=== PATIENT | female | born 2000 | race Caucasian/White ===

== ENCOUNTER 2018-08-10 14:42 | Day surgery (SDC) | payer SELFPAY ==
[~2018-08-10] VITALS: Ht 175.3 cm; Wt 145.1 kg
[~2018-08-10 14:42] MED LIST: ALBU17AE3 IH; SERT50TA PO
--- OUTSIDE RECORDS SUMMARY | 2018-08-10 14:46 | XMS REPORT ---
Author Author ANAND MEZA [facility] Address [address] [place] [address] Care Team Providers Care Clam Bed Laborer Name Role Phone MEZAANAND Unavailable PROBLEMS Type Condition ICD9-CM Code [id number] Code Onset Dates Condition Status SNOMED Code Problem Acute pharyngitis 462 Active 180049054 Problem Acute upper respiratory infections of unspecified site 465.9 Active 41999434 Problem Acute bronchitis 466.0 Active 56523313 Problem Asthma, unspecified, with (acute) exacerbation 493.92 Active 654844205 ALLERGIES No Information ENCOUNTERS Encounter Location Date Diagnosis [place] [address] [address] Feb, [facility] [address] [id number] Jul, Acute non-recurrent maxillary sinusitis J01.[address] [id number] Jun, Influenza A J10.[address] [id number] September, Encounter for PPD test Z11.[address] [id number] Aug, Encounter for PPD test Z11.1 [place] [id number] [place] [id number] Mar, Pharyngitis J02.9 [facility] [address] [address] Aug, [place] [id number] [address] Aug, [address] [id number] Jul, [facility] [address] [facility] [id number] [place] [address] Jul, [facility] [address] [facility] [place] [id number] [place] [id number] Jun, [facility] [address] [facility] [id number] [address] Jun, [facility] [address] [facility] [id number] [address] Jul, [facility] [address] [facility] [place] [id number] [place] [id number] Jul, IMMUNIZATIONS No Known Immunizations SOCIAL HISTORY Never Assessed REASON FOR VISIT Eye exam PLAN OF CARE VITAL SIGNS MEDICATIONS Unknown Medications RESULTS No Results PROCEDURES No Known procedures INSTRUCTIONS MEDICATIONS ADMINISTERED No Known Medications MEDICAL (GENERAL) HISTORY Type Description Date Medical History depression/anxiety
--- OUTSIDE RECORDS SUMMARY | 2018-08-10 14:46 | XMS REPORT ---
Author Author RACHEL GUALLPA [facility] eClinicalWorks Address Unknown Phone Unavailable Care Team Providers Care Systems Coordinator Name Role Phone RACHEL GUALLPA Unavailable Allergies No Known Allergies Problems Problem Type Condition Code Onset Dates Condition Status Problem Acute pharyngitis 462 Active Problem Acute upper respiratory infections of unspecified site 465.9 Active Problem Acute bronchitis 466.0 Active Problem Asthma, unspecified, with (acute) exacerbation 493.92 Active Assessment Encounter for PPD test Z11.1 Active Medications No Known Medications Procedures Procedure Coding System Code Date TB INTRADERMAL TEST CPT-4 33633 September 30, 2015 Results No Known Results Summary Purpose eClinicalWorks Submission
--- OUTSIDE RECORDS SUMMARY | 2018-08-10 14:46 | XMS REPORT ---
Author Ann Marie Lopez [facility] Address [address] [place], [place] [address] Care Team Providers Care Jewel Blocker And Sawyer Name Role Phone Ann Marie Knutson PCP Unavailable Allergies and Adverse Reactions Name Reaction Notes No known drug allergy Plan of Treatment Planned Activity Comments Planned Date Planned Time Plan/Goal HIV AG/AB COMBO 03/17/2017 12:00 AM HEPATITIS B SURF AG 03/17/2017 12:00 AM HEPATITIS C AB 03/17/2017 12:00 AM Medications Not available. Problem List Not available. Vital Signs Date Time BP-Sys(mm[Hg] BP-Janelle(mm[Hg]) HR(bpm) RR(rpm) Temp WT HT HC BMI BSA BMI Percentile O2 Sat(%) 03/17/2017 10:18:00 AM 132 mmHg 71 mmHg 102 bpm 18 rpm 97.7 F 362 lbs 69 in 53.46 kg/m2 2.83 m2 99.4 % 97 % Social History Name Description Comments Alcohol Current some day Tobacco Current every day smoker History of Procedures Not available. Results Summary Not available. History Of Immunizations Not available. History of Past Illness Name Date of Onset Comments Anxiety Depression Bipolar Disorder Hypertension Abrasion Mar 17 2017 10:22AM Payers Insurance Name Company Name Plan Name Plan Number Policy Number Policy Group Number Start Date Res Care ResCare [id number] WC Inj face N/A History of Encounters Visit Date Visit Type Provider 03/17/2017 Office visit Ann Marie Knutson GARMENT WORKER
--- OUTSIDE RECORDS SUMMARY | 2018-08-10 14:46 | XMS REPORT ---
Author Author RACHEL GUALLPA [facility] eClinicalWorks Address Unknown Phone Unavailable Care Team Providers Care Business Relations Manager Name Role Phone RACHEL GUALLPA Unavailable Allergies [...] System Code Date TB INTRADERMAL TEST CPT-4 76523 September 16, 2015 Results No Known Results Summary Purpose eClinicalWorks Submission
--- OUTSIDE RECORDS SUMMARY | 2018-08-10 14:46 | XMS REPORT ---
Author Author Ann Marie Knutson [facility] Address [address] [place], [place] [address] Care Team Providers Care Retail Merchandiser Name Role Phone Ann Marie Knutson PCP Unavailable Allergies and Adverse Reactions Name Reaction Notes No known drug allergy Plan of Treatment Not available. Medications Not available. Problem List Not available. [...] Current every day smoker History of Procedures Date Ordered Description Order Status 03/17/2017 12:00 AM HIV-1 AG W/HIV-1 & HIV-2 AB Returned 03/17/2017 12:00 AM HEPATITIS B SURFACE AG EIA Returned 03/17/2017 12:00 AM HEPATITIS C AB TEST Returned 03/18/2017 12:00 AM IMMUNIZATION ADMIN Reviewed 03/18/2017 12:00 AM TDAP VACCINE 7 YRS/> IM Reviewed Results Summary Not available. History Of Immunizations Name Date Admin Mfg Name Mfg Code Trade Name Lot# Route Inj Vis Given Vis Pub CVX Tdap 03/17/2017 [facility]vec [facility] BOOSTRIX BP27L Intramuscular Left Arm 03/17/2017 07/23/2014 115 History of Past Illness Name Date of Onset Comments Anxiety Depression Bipolar Disorder Hypertension Abrasion Mar 17 2017 10:22AM Need for Tdap vaccination Mar 18 2017 11:55AM Payers Insurance Name Company Name Plan Name Plan Number Policy Number Policy Group Number Start Date Res Care ResCare [id number] WC Inj face N/A History of Encounters Visit Date Visit Type Provider 03/17/2017 Office visit Ann Marie Knutson COMMERCIAL INTERIOR DESIGNER
--- OUTSIDE RECORDS SUMMARY | 2018-08-10 14:46 | XMS REPORT ---
Author Author [facility] Medical Staff Organization [facility] Address [address] [place], [place] [address] Phone [phone] Care Team Providers Care Academic Affairs Manager Name Role Phone MACIE DILL PP [phone] Summary purpose TRANSITION OF CARE AUTO GENERATION Chief Complaint and Reason for Visit No authorized Reason for Visit (Admitting Diagnosis) is available for this visit. Problem list No authorized problems tracked for continuity of care are available for this visit. Encounters No authorized problems tracked for encounter diagnoses are available for this visit. Medications No home medications recorded for this patient visit Allergies, adverse reactions, alerts No allergy information is available for this patient. Immunizations No immunizations recorded for this patient visit Relevant diagnostic tests and/or laboratory data No authorized results are available for this patient visit History of procedures No procedures recorded for this patient visit. Functional status No functional or cognitive status observations are available for this visit. Vital signs Type Value Date Respiration Rate 20breaths per minute :30 Pulse 118beats per minute :30 Oxygen Saturation 98% :30 BP Systolic 140mmHg 91-24-258378:30 BP Diastolic 84mmHg :30 Temperature 99.1F :30 Height 68inches :41 Weight 339LB :41 Social history Type Value Smoking Status FORMER SMOKER Treatment Plan No treatment plan text is available for this visit. Hospital discharge instructions Dismissal Condition good Disposition on DC home DC Inst/Educ Give yes
--- OUTSIDE RECORDS SUMMARY | 2018-08-10 14:46 | XMS REPORT ---
Author Author RACHEL GUALLPA eClinicalWorks Address Unknown Phone Unavailable Care Team Providers Care Jailer/Training Officer Name Role Phone RACHEL GUALLPA CP Unavailable Allergies, Adverse Reactions, Alerts Substance Reaction Event Type N.K.D.A. Info Not Available Non Drug Allergy Problems Problem Type Condition Code Onset Dates Condition Status Problem Acute pharyngitis 462 Active Problem Acute upper respiratory infections of unspecified site 465.9 Active Problem Acute bronchitis 466.0 Active Problem Asthma, unspecified, with (acute) exacerbation 493.92 Active Assessment Pharyngitis J02.9 Active Medications Medication Code System Code Instructions Start Date End Date Status Dosage HydrOXYzine HCl [facility] [address]-40 25 mg July 30, 2014 take 1 tablet by Oral route 1 time per day PRN Zoloft [facility] [address]-19 125 mg July 30, 2014 take 1 tablet by Oral route 1 time per day Takes 100mg 25mg daily Amoxicillin [facility] [address]-14 500 MG Orally every 12 hrs Apr 25, 2015 May 02, 2015 1 tablet Procedures Procedure Coding System Code Date SOLUMEDROL (UP TO 125 MG) CPT-4 J2930 Apr 25, 2015 THER/PROPH/DIAG INJ, SC/IM CPT-4 43208 Apr 25, 2015 STREP A ASSAY W/OPTIC CPT-4 98517 Apr 25, 2015 Office Visit, Est Pt., Level 3 CPT-4 76866 Apr 25, 2015 Vital Signs Date/Time: Apr 25, 2015 Cardiac Monitoring Heart Rate 155 bpm Temperature 100.4 F Weight 349.6 lbs Wt Percentile 99.8 % Blood Pressure Diastolic 78 mmHg Blood Pressure Systolic 130 mmHg Results Name Result Date Reference Range Unit Abnormality Flag STREP A (IN HOUSE) ----STREP A POSITIVE [id number] ----Control + [id number] ----Lot # [id number] ----Exp date [id number] Summary Purpose eClinicalWorks Submission
--- OUTSIDE RECORDS SUMMARY | 2018-08-10 14:46 | XMS REPORT ---
Author Author Ann Marie Knutson [facility] Address [address] [place], [place] [address] Care Team Providers Care Blue Leather Setter Name Role Phone Ann Marie Knutson PCP [...] Vis Given Vis Pub CVX Tdap 03/17/2017 GlaxMoonf[facility]e [facility] BOOSTRIX BP27L Intramuscular Left Arm 03/17/2017 07/23/2014 115 History of Past Illness Name Date of Onset Comments Anxiety Depression Bipolar Disorder Hypertension Abrasion Mar 17 2017 10:22AM Need for Tdap vaccination Mar 18 2017 11:55AM Payers Insurance Name Company Name Plan Name Plan Number Policy Number Policy Group Number Start Date Res Care ResCare [id number] WC Inj face N/A History of Encounters Visit Date Visit Type Provider 03/17/2017 Office visit Ann Marie Knutson BIOFUELS PRODUCT DEVELOPMENT MANAGER
--- OUTSIDE RECORDS SUMMARY | 2018-08-10 14:46 | XMS REPORT ---
Author Ann Marie Lopez [facility] Address [address] [place], [place] [address] Care Team Providers Care Family Educator Name Role Phone Ann Marie Knutson PCP Unavailable Allergies and Adverse Reactions Name Reaction Notes No known drug allergy Plan of Treatment Planned Activity Comments Planned Date Planned Time Plan/Goal HEPATITIS B SURF AG 03/17/2017 12:00 AM Injection Of Immunization, Initial 03/18/2017 12:00 AM BOOSTRIX 03/18/2017 12:00 AM Medications Not available. Problem List [...] HIV-2 AB Returned 03/17/2017 12:00 AM HEPATITIS C AB TEST Returned Results Summary Not available. History Of Immunizations Not available. History of Past Illness Name Date of Onset Comments Anxiety Depression Bipolar Disorder Hypertension Abrasion Mar 17 2017 10:22AM Need for Tdap vaccination Mar 18 2017 11:55AM Payers Insurance Name Company Name Plan Name Plan Number Policy Number Policy Group Number Start Date Res Care ResCare [id number] WC Inj face N/A History of Encounters Visit Date Visit Type Provider 03/17/2017 Office visit Ann Marie Knutson CAGE SUPERVISOR
--- OUTSIDE RECORDS SUMMARY | 2018-08-10 14:46 | XMS REPORT ---
Author Author FLORI THACKER [facility] Address [address] [place] [address] Care Team Providers Care Drafter Mechanical Name Role Phone FLORI THACKER Unavailable PROBLEMS Type Condition ICD9-CM Code [id number] Code Onset Dates Condition Status SNOMED Code Problem Acute pharyngitis 462 Active 076159020 Problem Acute upper respiratory infections of unspecified site 465.9 Active 59156383 Problem Acute bronchitis 466.0 Active 03213377 Problem Asthma, unspecified, with (acute) exacerbation 493.92 Active 903253135 ALLERGIES No Known Allergies SOCIAL HISTORY Never Assessed PLAN OF CARE Activity Details Follow Up prn Reason: VITAL SIGNS Height 67 in 2016-07-05 Weight 358.2 lbs 2016-07-05 Temperature 100.4 degrees Fahrenheit 2016-07-05 Heart Rate 90 bpm 2016-07-05 Respiratory Rate 18 2016-07-05 BMI 56.10 kg/m2 2016-07-05 Blood pressure systolic 132 mmHg 2016-07-05 Blood pressure diastolic 80 mmHg 2016-07-05 MEDICATIONS No Known Medications RESULTS Name Result Date Reference Range INFLUENZA A & B (IN HOUSE) 2016-07-05 INFLUENZA A positive INFLUENZA B negative Control + Lot # [id number] Exp date 12/26/2017 PROCEDURES Procedure Date Ordered Result Body Site INFLUENZA ASSAY W/OPTIC Jul 05, 2016 IMMUNIZATIONS No Known Immunizations MEDICAL (GENERAL) HISTORY Type Description Date Medical History depression/anxiety
--- OUTSIDE RECORDS SUMMARY | 2018-08-10 14:46 | XMS REPORT ---
Author [facility] Organization [facility] Address [address] [place], [place] [address] Phone [phone] Care Team Providers Care Cafe Or Restaurant Manager Name Role Phone MACIE DILL PP [phone] Summary purpose TRANSITION OF CARE AUTO GENERATION Chief Complaint and Reason for Visit Admit Diagnosis 1 ELB/FOREARM/WRST INJ NOS Problem list No authorized problems tracked for [...] for this patient visit History of procedures Procedure Code Code Type Description Date Performed Performing Physician 82826 CPT-4 EMERGENCY DEPT VISIT 03-10-2014 GIOVANNY BLACK 42146 CPT-4 EMERGENCY DEPT VISIT 03-10-2014 GIOVANNY BLACK Functional status No functional or cognitive status observations are available for this visit. Vital signs Type Value Date Respiration Rate 20breaths per minute 79-90-727470:30 Pulse 118beats per minute 03-00-767832:30 Oxygen Saturation 98% 47-60-912348:30 BP Systolic 140mmHg 38-56-879735:30 BP Diastolic 84mmHg 63-91-333227:30 Temperature 99.1F 77-35-467333:30 Height 68inches :41 Weight 339LB 55-43-724822:41 Social history Type Value Smoking Status FORMER SMOKER Treatment Plan No treatment plan text is available for this visit. Hospital discharge instructions Dismissal Condition good Disposition on DC home DC Inst/Educ Give yes
--- OUTSIDE RECORDS SUMMARY | 2018-08-10 14:47 | XMS REPORT | Continuity of Care Document ---
Demographics x Preferred Language Unknown Marital Status Unknown Alevism Affiliation Unknown Race Unknown Ethnic Group Unknown Author Author [facility] Organization [facility] Address Unknown Phone Unavailable Allergies Active Description Code Type Severity Reaction Onset Reported/Identified Relationship to Patient Clinical Status Yes NO KNOWN DRUG ALLERGIES UNKNOWN NO KNOWN DRUG ALLERG Yes No Known Allergies NKMA N/A N/A 01/18/2014 Medications There is no data. Problems Date Dx Coded Attending Type Code Diagnosis Diagnosed By 02/08/2011 RACHEL GUALLPA APRN V05.4 VARICELLA DX 02/08/2011 RACHEL GUALLPA APRN V06.1 TDAP DX 08/22/2013 RACHEL GUALLPA APRN 462 PHARYNGITIS ACUTE 08/22/2013 RACHEL GUALLPA APRN 465.9 UPPER RESPIRATORY INFECTION 08/22/2013 RACHEL GUALLPA APRN 493.92 ASTHMA (ACUTE) EXACERBATION Procedures There is no data. Results Test Result Range HH - 09/27/17 10:46 Hct 36.0 % 36.0-46.0 Hgb 10.7 g/dL 13.0-15.0 Encounters ACCT No. Visit Date/Time Discharge Status Pt. Type Provider Facility Loc./Unit Complaint [id number] 03/10/2014 17:42:00 03/10/2014 18:30:00 DIS Emergency GIOVANNY BLACK [facility] EMR [id number] 09/27/2017 10:38:00 09/27/2017 23:59:00 DIS Outpatient Luis FRe morris [facility] 03/10/2014 17:43:29 ACT Document Registration [id number] 06/25/2014 10:55:00 Document Registration [id number] 08/22/2013 09:00:00 08/22/2013 23:59:59 CLS Outpatient RACHEL GUALLPA APRN [id number] 03/17/2017 11:04:32 03/17/2017 23:59:59 CLS Outpatient Ann Marie Knutson
--- NOTE | 2018-08-10 15:12 | ED Abdominal Pain ---
General Chief Complaint: Abdominal/GI Problems Stated Complaint: ABD PAIN Nursing Triage Note: pt presents to ed with complaints of r upper abdominal pain x 2 days but worse today. Pt denies n/v/d. Sepsis Screen: Possible Sepsis Risk Source of Information: Patient Exam Limitations: No Limitations History of Present Illness Date Seen by Provider: Aug 10, 2018 Time Seen by Provider: 15:10 Initial Comments To ER with 2 day history of right upper quadrant abdominal pain. She's never had this before. She has not had any nausea vomiting, no bowel changes and no urinary symptoms. Last food intake was this morning at breakfast time. Currently she rates her pain at "12"out of 10. Timing/Duration: 2-3 Days Severity/Quality: Severe Location: RUQ Radiation: RUQ Activities at Onset: None Associated Symptoms: Denies Symptoms Allergies and Home Medications Allergies Coded Allergies: No Known Drug Allergies (Unverified , 07/06/12) Home Medications Albuterol 17 Gm Inh, 1 SPRAY IH UD, (Reported) Hydrocodone/Acetaminophen 1 Each Tablet, 1 EACH PO Q6H PRN for PAIN-MODERATE Do not fill unless metronidazole and Bactrim are also filled Prescribed by: PATRICK RODRIGUEZ on 08/10/18 1626 Metronidazole 500 Mg Tablet, 500 MG PO BID Prescribed by: PATRICK RODRIGUZE on 08/10/18 162 Sulfamethoxazole/Trimethoprim 1 Each Tablet, 1 EACH PO BID Prescribed by: PATRICK RODRIGUEZ on 08/10/18 162 Patient Home Medication List Home Medication List Reviewed: Yes Review of Systems Review of Systems Constitutional: see HPI EENTM: No Symptoms Reported Respiratory: No Symptoms Reported Gastrointestinal: See HPI, Abdominal Pain; Denies Constipated, Denies Diarrhea , Denies Nausea Genitourinary: No Symptoms Reported Musculoskeletal: no symptoms reported Skin: no symptoms reported Psychiatric/Neurological: No Symptoms Reported Endocrine: No Symptoms Reported Past Bupxffg-Bemogd-Qaejom Hx Patient Social History Alcohol Use: Denies Use Recreational Drug Use: No Smoking Status: Current Everyday Smoker Type Used: Cigarettes Recent Foreign Travel: No Contact w/Someone Who Travel: No Recent Infectious Disease Expo: No Immunizations Up To Date Date of Influenza Vaccine: Mar 06, 2012 Past Medical History Surgeries: No Respiratory: No Asthma Cardiac: Yes Hypertension Neurological: No Reproductive Disorders: No Sexually Transmitted Disease: No HIV/AIDS: No Genitourinary: No Gastrointestinal: No Musculoskeletal: No Endocrine: No HEENT: No Cancer: No Psychosocial: Yes Suicide Attempts, Violent Behavior Integumentary: No Blood Disorders: No Adverse Reaction/Blood Tranf: No Physical Exam Vital Signs Vital Signs - First Documented 08/10/18 14:48 Temp 100.4 Pulse 127 Resp 18 B/P (MAP) 155/92 (113) Pulse Ox 97 Capillary Refill : Less Than 3 Seconds Height/Weight/BMI Height: 5'9.00" Weight: 320lbs. oz. 145.292656pl; BMI Method:Stated General Appearance: WD/WN, no apparent distress HEENT: PERRL/EOMI, normal ENT inspection Gastrointestinal: normal bowel sounds, soft, tenderness (right upper quadrant) Extremities: normal range of motion, non-tender Neurologic/Psychiatric: alert, normal mood/affect, oriented x 3 Skin: normal color, warm/dry, other (Multiple old scars running horizontally across the volar aspect of the left forearm consistent with self cutting behaviors) Focused Exam Lactate Level 08/10/18 15:44: Lactic Acid Level 0.90 Lactic Acid Level Laboratory Tests Test 08/10/18 15:44 Lactic Acid Level 0.90 MMOL/L (0.50-2.00) Progress/Results/Core Measures Results/Orders Lab Results Laboratory Tests Test 08/10/18 15:05 08/10/18 15:10 08/10/18 15:44 Range/Units Urine Color JONH H Urine Clarity VERY CLOUDY H Urine pH 6 5-9 Urine Specific [place] 1.020 1.016-1.022 Urine Protein 2+ H NEGATIVE Urine Glucose (UA) NEGATIVE NEGATIVE Urine Ketones NEGATIVE NEGATIVE Urine Nitrite NEGATIVE NEGATIVE Urine Bilirubin NEGATIVE NEGATIVE Urine Urobilinogen 1 NORMAL MG/DL Urine Leukocyte Esterase 3+ H NEGATIVE Urine RBC (Auto) 4+ H NEGATIVE Urine RBC 10-25 H /HPF Urine WBC 50-100 H /HPF Urine Squamous Epithelial Cells 10-25 H /HPF Urine Crystals NONE /LPF Urine Bacteria MODERATE H /HPF Urine Casts NONE /LPF Urine Mucus SMALL H /LPF Urine Trichomonas MODERATE H /HPF Urine Culture Indicated YES White Blood Count 16.3 H 4.3-11.0 10^3/uL Red Blood Count 4.81 4.35-5.85 10^6/uL Hemoglobin 9.0 L 11.5-16.0 G/DL Hematocrit 31 L 35-52 % Mean Corpuscular Volume 63 L 80-99 FL Mean Corpuscular Hemoglobin 19 L 25-34 PG Mean Corpuscular Hemoglobin Concent 30 L 32-36 G/DL Red Cell Distribution Width 18.2 H 10.0-14.5 % Platelet Count 608 H 130-400 10^3/uL Mean Platelet Volume 9.1 7.4-10.4 FL Neutrophils (%) (Auto) 76 H 42-75 % Lymphocytes (%) (Auto) 15 12-44 % Monocytes (%) (Auto) 7 0-12 % Eosinophils (%) (Auto) 1 0-10 % Basophils (%) (Auto) 0 0-10 % Neutrophils # (Auto) 12.4 H 1.8-7.8 X 10^3 Lymphocytes # (Auto) 2.5 1.0-4.0 X 10^3 Monocytes # (Auto) 1.1 H 0.0-1.0 X 10^3 Eosinophils # (Auto) 0.2 0.0-0.3 10^3/uL Basophils # (Auto) 0.1 0.0-0.1 10^3/uL Neutrophils % (Manual) 78 % Lymphocytes % (Manual) 14 % Monocytes % (Manual) 6 % Eosinophils % (Manual) 2 % Basophils % (Manual) 0 % Band Neutrophils 0 % Polychromasia SLIGHT Hypochromasia SLIGHT Anisocytosis MODERATE Microcytosis MARKED Spherocytes MODERATE Sodium Level 138 135-145 MMOL/L Potassium Level 4.1 3.6-5.0 MMOL/L Chloride Level 105 98-107 MMOL/L Carbon Dioxide Level 22 21-32 MMOL/L Anion Gap 11 5-14 MMOL/L Blood Urea Nitrogen 7 7-18 MG/DL Creatinine 0.70 0.60-1.30 MG/DL Estimat Glomerular Filtration Rate > 60 BUN/Creatinine Ratio 10 Glucose Level 107 H 70-105 MG/DL Calcium Level 9.1 8.5-10.1 MG/DL Corrected Calcium 9.3 8.5-10.1 MG/DL Total Bilirubin 0.3 0.1-1.0 MG/DL Aspartate Amino Transf (AST/SGOT) 22 5-34 U/L Alanine Aminotransferase (ALT/SGPT) 34 0-55 U/L Alkaline Phosphatase 52 40-136 U/L Total Protein 8.4 H 6.4-8.2 GM/DL Albumin 3.8 3.2-4.5 GM/DL Lipase 15 8-78 U/L Lactic Acid Level 0.90 0.50-2.00 MMOL/L My Orders Orders - PATRICK RODRIGUEZ APRN Cbc With Automated Diff (08/10/18 14:59) Comprehensive Metabolic Panel (08/10/18 14:59) Ua Culture If Indicated (08/10/18 14:59) Urine Bedside (08/10/18 14:59) Lipase (08/10/18 14:59) Iv Heplock-Insert (Order) (08/10/18 14:59) Ns Iv 1000 Ml (Sodium Chloride 0.9%) (08/10/18 15:15) Fentanyl Injection (Sublimaze Injection (08/10/18 15:15) Ketorolac Injection (Toradol Injection) (08/10/18 15:15) Us Gallbladder [id number] (08/10/18 15:10) Manual Differential (08/10/18 15:10) Urine Culture (08/10/18 15:05) Ceftriaxone For Iv Use (Rocephin For I (08/10/18 15:45) Ct Abdomen/Pelvis W (08/10/18 15:42) Blood Culture (08/10/18 15:42) Lactic Acid Analyzer (08/10/18 15:42) Iohexol Injection (Omnipaque 350 Mg/Ml 1 (08/10/18 16:00) Received Contrast (Contrast Received) (08/10/18 16:00) Sodium Chloride Flush (Catheter Flush Sy (08/10/18 16:00) Ns (Ivpb) (Sodium Chloride 0.9% Ivpb Bag (08/10/18 16:00) Lorazepam Injection (Ativan Injection) (08/10/18 17:00) Lorazepam Injection (Ativan Injection) (08/10/18 16:49) Medications Given in ED Current Medications Medications Dose Ordered Sig/Mannie Route Start Time Stop Time Status Last Admin Dose Admin Fentanyl Citrate 50 mcg ONCE ONCE IVP 08/10/18 15:15 08/10/18 15:16 DC 08/10/18 15:20 50 MCG Iohexol 100 ml ONCE ONCE IV 08/10/18 16:00 08/10/18 16:01 DC 08/10/18 15:56 100 ML Ketorolac Tromethamine 15 mg ONCE ONCE IVP 08/10/18 15:15 08/10/18 15:16 DC 08/10/18 15:20 15 MG Sodium Chloride 10 ml NEEDED PRN IV 08/10/18 16:00 08/10/18 15:56 10 ML Sodium Chloride 100 ml ONCE ONCE IV 08/10/18 16:00 08/10/18 16:01 DC 08/10/18 15:56 80 ML Vital Signs/I&O 08/10/18 14:48 Temp 100.4 Pulse 127 Resp 18 B/P (MAP) 155/92 (113) Pulse Ox 97 Blood Pressure Mean: 113 Diagnostic Imaging Diagonstic Imaging: CT, Ultrasound Comments NAME: [facility] REC#: [id number] PT STATUS: REG ER : 2000 PHYSICIAN: PATRICK RODRIGUEZ CLAY DRY PRESS MIXER OPERATOR ADMIT DATE: 08/10/18/ER Draft Date of Exam:08/10/18 US GALLBLADDER [id number] PROCEDURE: US Gallbladder. TECHNIQUE: Multiple real-time grayscale images were obtained over the right upper quadrant in various projections. INDICATION: Abdominal pain. FINDINGS: Liver is enlarged at 21.2 cm. There is increased echogenicity consistent with hepatic steatosis. No discrete liver mass is seen. Portal vein is patent and shows normal direction of flow. Gallbladder does contain multiple small stones. No wall thickening or biliary ductal dilatation is seen. Pancreas was obscured by bowel gas. The right kidney is unremarkable. There is no ascites. IMPRESSION: 1. Hepatomegaly and hepatic steatosis. 2. Cholelithiasis without evidence of acute cholecystitis. Dictated on workstation # [id number] Dict: 08/10/18 1600 Trans: 08/10/18 1603 [id number] Interpreted by: IVAN SOLORIO MD Electronically signed by: Departure Communication (Admissions) [id number]-patient refuses lab draw for second set of blood cultures. Impression Primary Impression: Urinary tract infection Qualified Codes: N30.01 - Acute cystitis with hematuria Additional Impressions: Trichomoniasis Appendicitis Qualified Codes: K35.30 - Acute appendicitis with localized peritonitis, without perforation or gangrene Disposition: ADMITTED INPATIENT Condition: Stable Admissions Decision to Admit Reason: Admit from ER (General) Decision to Admit/Date: Aug 10, 2018 Time/Decision to Admit Time: 16:56 Departure-Patient Inst. Decision time for Depature: 16:23 Referrals: STEVEN GAGE MD (PCP/Family) Primary Care Physician Patient Instructions: Urinary Tract Infection, Adult (DC) Add. Discharge Instructions: 1. Tylenol and Motrin for fever 2. All discharge instructions reviewed with patient and/or family. Voiced understanding. Scripts Hydrocodone/Acetaminophen ([place] 5-325 Tablet) 1 Each Tablet 1 EACH PO Q6H PRN for PAIN-MODERATE MDD 10, #10 TAB Do not fill unless metronidazole and Bactrim are also filled Prov: PATRICK RODRIGUEZ APRN 08/10/18 Metronidazole (Metronidazole) 500 Mg Tablet 500 MG PO BID, #14 TAB Prov: PATRICK RODRIGUEZ APRN 08/10/18 Sulfamethoxazole/Trimethoprim (Bactrim Ds Tablet) 1 Each Tablet 1 EACH PO BID, #14 TAB Prov: PATRICK RODRIGUEZ APRN 08/10/18 Work/School Note: Work Release Form Date Seen in the Emergency Department: Aug 10, 2018 Return to Work: Aug 12, 2018 PATRICK RODRIGUEZ APRN Aug 10, 2018 15:12
[2018-08-10] MEDS ORDERED: NS IV 1000 ML 1,000 ML IV SCH (15:15)
[2018-08-10] MEDS ORDERED: KETOROLAC 30 MG/ML VIAL IVP ONE (15:15)
[2018-08-10] MEDS ORDERED: fentaNYL INJECTION 100 MCG/2 ML AMP IVP ONE ×2 (15:15→17:15)
[2018-08-10 15:16] LABS: BASOPHILS # (AUTO) 0.1 10^3/uL (0.0-0.1); BASOPHILS % (AUTO) 0 % (0-10); EOSINOPHILS # (AUTO) 0.2 10^3/uL (0.0-0.3); EOSINOPHILS % (AUTO) 1 % (0-10); HEMATOCRIT 31 % (35-52); LYMPHOCYTES # (AUTO) 2.5 X 10^3 (1.0-4.0); LYMPHOCYTES % (AUTO) 15 % (12-44); MEAN CORPUSCULAR HEMOGLOBIN 19 PG (25-34); MEAN CORPUSCULAR HGB CONC 30 G/DL (32-36); MEAN CORPUSCULAR VOLUME 63 FL (80-99); MEAN PLATELET VOLUME 9.1 FL (7.4-10.4); MONOCYTES # (AUTO) 1.1 X 10^3 (0.0-1.0); MONOCYTES % (AUTO) 7 % (0-12); NEUTROPHILS # (AUTO) 12.4 X 10^3 (1.8-7.8); NEUTROPHILS % (AUTO) 76 % (42-75); PLATELET COUNT 608 10^3/uL (130-400); RED CELL DISTRIBUTION WIDTH 18.2 % (10.0-14.5); WHITE BLOOD COUNT 16.3 10^3/uL (4.3-11.0)
[2018-08-10 15:17] LABS: BILIRUBIN,URINE NEGATIVE (NEGATIVE); CLARITY,URINE VERY CLOUDY; COLOR,URINE AMBER; GLUCOSE, URINE (UA) NEGATIVE (NEGATIVE); KETONES,URINE NEGATIVE (NEGATIVE); LEUKOCYTE ESTERASE ,URINE 3+ (NEGATIVE); NITRITE,URINE NEGATIVE (NEGATIVE); PH,URINE 6 (5-9); PROTEIN,URINE 2+ (NEGATIVE); UROBILINOGEN,URINE 1 MG/DL (NORMAL)
[2018-08-10 15:32] LABS: BACTERIA,URINE MODERATE /HPF; TRICHOMONAS,URINE MODERATE /HPF; WBC,URINE 50-100 /HPF
[2018-08-10 15:36] LABS: ALANINE AMINOTRANSFERASE 34 U/L (0-55); ALBUMIN 3.8 GM/DL (3.2-4.5); ALKALINE PHOSPHATASE 52 U/L (40-136); BILIRUBIN,TOTAL 0.3 MG/DL (0.1-1.0); BUN/CREATININE RATIO 10; CALCIUM 9.1 MG/DL (8.5-10.1); CARBON DIOXIDE 22 MMOL/L (21-32); CHLORIDE 105 MMOL/L (98-107); GFR ESTIMATED > 60; GLUCOSE 107 MG/DL (70-105); LIPASE 15 U/L (8-78); POTASSIUM 4.1 MMOL/L (3.6-5.0); SODIUM 138 MMOL/L (135-145); TOTAL PROTEIN 8.4 GM/DL (6.4-8.2)
[2018-08-10 15:44] LABS: ANISOCYTOSIS MODERATE; BAND NEUTROPHILS 0 %; BASOPHILS % (MANUAL) 0 %; EOSINOPHILS % (MANUAL) 2 %; HYPOCHROMASIA SLIGHT; LYMPHOCYTES % (MANUAL) 14 %; MICROCYTOSIS MARKED; MONOCYTES % (MANUAL) 6 %; NEUTROPHILS % (MANUAL) 78 %; POLYCHROMASIA SLIGHT; SPHEROCYTES MODERATE
[2018-08-10] MEDS ORDERED: cefTRIAXone FOR IV USE 1,000 MG in WATER (STERILE) FOR INJECTION 10 ML IV ONE (15:45)
[2018-08-10] MEDS ORDERED: NS 100 ML (IVPB) BAG IV ONE (16:00)
[2018-08-10] MEDS ORDERED: IOHEXOL 350 MG/ML 100 ML (OMNIPAQUE 350) VIAL IV ONE (16:00)
[2018-08-10] MEDS ORDERED: HOLD METFORMIN - RECEIVED CONTRAST 20 ML VIAL IV SCH (16:00)
[2018-08-10] MEDS ORDERED: CATHETER FLUSH 10 ML SYR IV PRN (16:00)
--- NOTE | 2018-08-10 16:03 | Diagnostic Imaging Report ---
PROCEDURE: US Gallbladder. TECHNIQUE: Multiple real-time grayscale images were obtained over the right upper quadrant in various projections. INDICATION: Abdominal pain. FINDINGS: Liver is enlarged at 21.2 cm. There is increased echogenicity consistent with hepatic steatosis. No discrete liver mass is seen. Portal vein is patent and shows normal direction of flow. Gallbladder does contain multiple small stones. No wall thickening or biliary ductal dilatation is seen. Pancreas was obscured by bowel gas. The right kidney is unremarkable. There is no ascites. IMPRESSION: 1. Hepatomegaly and hepatic steatosis. 2. Cholelithiasis without evidence of acute cholecystitis. Dictated by: Dictated on workstation # [id number]
--- NOTE | 2018-08-10 16:21 | NUR ---
PT STATES PAIN IS 5/10 VS 10/10. PT STATES PAIN IS GREATLY RELIEVED
[2018-08-10] MEDS ORDERED: METR-145 PO (16:26)
[2018-08-10] MEDS ORDERED: SULF1TAB35 PO (16:26)
[2018-08-10] MEDS ORDERED: HYDR-4226 PO (16:26)
--- NOTE | 2018-08-10 16:39 | Diagnostic Imaging Report ---
PROCEDURE: CT abdomen and pelvis with contrast. TECHNIQUE: Multiple contiguous axial images were obtained through the abdomen and pelvis after administration of intravenous contrast. INDICATION: Right-sided abdominal pain. COMPARISON: None. FINDINGS: Lung bases are clear. Gallbladder, solid organs, vascular structures and small bowel are normal. There is some slight constipation in the proximal colon without obstruction or ileus. There is no free air, free fluid or lymphadenopathy. The visualized appendix is slightly dilated, measuring 6.2 mm. There is some slight inflammatory change surrounding the appendix within the fat. This may represent a very mild acute appendicitis. Please correlate clinically. There is a 3.5 cm cyst in the left ovary likely physiologic. There is trace free fluid in the cul-de-sac. Distal ureters and urinary bladder are grossly unremarkable. Osseous structures are age-appropriate. There is no hernia. IMPRESSION: 1. Suspect very mild acute appendicitis without evidence of abscess or free air. 2. Physiologic cysts of left ovary with trace free fluid in the cul-de-sac. 3. Slight proximal colonic constipation. Report was called to the [facility], [place] at 4:37 p.m., by shakeel. Dictated by: Dictated on workstation # [id number]
[2018-08-10] MEDS ORDERED: LORazepam INJ 2 MG/ML (ATIVAN) VIAL ONE (16:49)
[2018-08-10] MEDS ORDERED: LORazepam INJ 2 MG/ML (ATIVAN) VIAL IVP PRN (17:00)
--- OUTSIDE RECORDS SUMMARY | 2018-08-10 17:01 | XMS REPORT | Continuity of Care Document ---
Demographics x Preferred Language Unknown Marital Status Unknown Hindu Affiliation Unknown Race Unknown Ethnic Group Unknown Author Author [facility] Address Unknown Phone Unavailable Allergies Active [...] Status Pt. Type Provider Facility Loc./Unit Complaint [id number] 03/10/2014 17:42:00 03/10/2014 18:30:00 DIS Emergency GIOVANNY [facility] EMR [id number] 09/27/2017 10:38:00 09/27/2017 23:59:00 DIS Outpatient Luis FRe morris [facility] 03/10/2014 17:43:29 ACT Document Registration [id number] 06/25/2014 10:55:00 Document Registration [id number] 08/22/2013 09:00:00 08/22/2013 23:59:59 CLS Outpatient RACHEL GUALLPA APRN [id number] 03/17/2017 11:04:32 03/17/2017 23:59:59 CLS Outpatient Ann Marie Knutson
[2018-08-10] MEDS ORDERED: cefTRIAXone 2 GM IV (ROCEPHIN) VIAL ONE (17:06)
[2018-08-10] MEDS ORDERED: NS (IVPB) 50 ML ONE (17:06)
[2018-08-10] MEDS ORDERED: ONDANSETRON 4 MG/2 ML (SDV) Z0FRAN IVP PRN (17:15)
[2018-08-10] MEDS ORDERED: morphine INJ 10 MG/ML 1ML (SYR OR VIAL) IVP ONE (17:15)
[2018-08-10] MEDS ORDERED: MEPERIDINE (DEMEROL) INJ 50 MG/ML IVP ONE (17:15)
[2018-08-10] MEDS ORDERED: fentaNYL INJECTION 100 MCG/2 ML AMP ONE ×2 (17:18→18:48)
[2018-08-10] MEDS ORDERED: MIDAZOLAM 2 MG/2 ML (VERSED) VIAL ONE (17:18)
[2018-08-10] MEDS ORDERED: LIDOCAINE 1% INJ 20 ML 20 ML VIAL ONE (17:21)
[2018-08-10] MEDS ORDERED: BUP/EPI 0.5% 1:200,000 (SENSORCAINE) 30 ML VIAL ONE (17:21)
[2018-08-10] MEDS: LACTATED RINGERS 1,000 ML IV PRN ×2 (17:30→18:57)
--- NOTE | 2018-08-10 17:39 | History & Physical-Surgical ---
History of Present Illness History of Present Illness Reason for visit/HPI CC: ruq abdominal pain patient seen and evaluated in emergency dept. 18 year old female with 2-3 days of abdominal pain. states it is right sided. states currently 9/10 and was severe. No radiation of pain. not having any nausea or emesis. just hasn't felt well last couple days. worse with movement, nothing making better. ct scan reviewed and some slight fat stranding about appendix and slightly dilated. Date of Admission T Date Seen by a Provider: Aug 10, 2018 Time Seen by a Provider: 17:33 I consulted on this patient on 08/10/18 17:33 Attending Physician Mohit Ha DO Admitting Physician Re Kerns MD Consult Allergies and Home Medications Allergies Coded Allergies: No Known Drug Allergies (Unverified , 07/06/12) Home Medications Albuterol 17 Gm Inh, 1 SPRAY IH UD, (Reported) Hydrocodone/Acetaminophen 1 Each Tablet, 1 EACH PO Q6H PRN for PAIN-MODERATE Do not fill unless metronidazole and Bactrim are also filled Prescribed by: PATRICK RODRIGUEZ on 08/10/181625 Metronidazole 500 Mg Tablet, 500 MG PO BID Prescribed by: PATRICK RODRIGUEZ on 08/10/181625 Sulfamethoxazole/Trimethoprim 1 Each Tablet, 1 EACH PO BID Prescribed by: PATRICK RODRIGUEZ on 08/10/181625 Patient Home Medication List Home Medication List Reviewed: Yes Past Autndkj-Lqqlfu-Fvqyfa Hx Patient Social History Alcohol Use: Denies Use Recreational Drug Use: No Smoking Status: Current Everyday Smoker Type Used: Cigarettes Recent Foreign Travel: No Contact w/Someone Who Travel: No Recent Infectious Disease Expo: No Immunizations Up To Date Date of Influenza Vaccine: Mar 06, 2012 Surgeries History of Surgeries: No Respiratory History of Respiratory Disorde: No Respiratory Disorders: Asthma Cardiovascular History of Cardiac Disorders: Yes Cardiac Disorders: Hypertension Neurological History of Neurological Disord: No Reproductive System Hx Reproductive Disorders: No Sexually Transmitted Disease: No HIV/AIDS: No Genitourinary History of Genitourinary Disor: No Gastrointestinal History of Gastrointestinal Di: No Musculoskeletal History of Musculoskeletal Dis: No Endocrine History of Endocrine Disorders: No HEENT History of HEENT Disorders: No Cancer History of Cancer: No Psychosocial History of Psychiatric Problem: Yes Behavioral Health Disorders: Suicide Attempts, Violent Behavior Integumentary History of Skin or Integumenta: No Blood Transfusions History of Blood Disorders: No Adverse Reaction to a Blood Tr: No Family Medical History Significant Family History: No Pertinent Family Hx Review of Systems Constitutional: no symptoms reported EENTM: no symptoms reported Respiratory: no symptoms reported Cardiovascular: no symptoms reported Gastrointestinal: see HPI Genitourinary: no symptoms reported Musculoskeletal: no symptoms reported Skin: no symptoms reported Psychiatric/Neurological: No Symptoms Reported Physical Exam Vital Signs Vital Signs - First Documented 08/10/18 14:48 Temp 100.4 Pulse 127 Resp 18 B/P (MAP) 155/92 (113) Pulse Ox 97 Capillary Refill : Less Than 3 Seconds Height, Weight, BMI Height: 5'9.00" Weight: 320lbs. oz. 145.391629xc; BMI Method:Stated General Appearance: No Apparent Distress (laying in bed) HEENT: PERRL/EOMI, Normal ENT Inspection (multiple piercings) Neck: Non Tender, Supple Respiratory: Chest Non Tender, No Accessory Muscle Use, No Respiratory Distress Cardiovascular: Regular Rate, Rhythm Gastrointestinal: Tenderness (right lower quadrant) Rectal: Deferred Back: No CVA Tenderness Extremity: Non Tender, No Calf Tenderness Neurologic/Psychiatric: Alert, Oriented x3, No Motor/Sensory Deficits, Normal Mood/Affect, risk and insurance consultant II-XII Norm as Tested Skin: Normal Color, Warm/Dry Lymphatic: No Adenopathy Data Review Labs Laboratory Tests 08/10/18 15:05: Urine Color AMBERH, Urine Clarity VERY CLOUDYH, Urine pH 6, Urine Specific [place] 1.020, Urine Protein 2+H, Urine Glucose (UA) NEGATIVE, Urine Ketones NEGATIVE, Urine Nitrite NEGATIVE, Urine Bilirubin NEGATIVE, Urine Urobilinogen 1 , Urine Leukocyte Esterase 3+H, Urine RBC (Auto) 4+H, Urine RBC 10-25H, Urine WBC 50-100H, Urine Squamous Epithelial Cells 10-25H, Urine Crystals NONE, Urine Bacteria MODERATEH, Urine Casts NONE, Urine Mucus SMALLH, Urine Trichomonas MODERATEH, Urine Culture Indicated YES 08/10/18 15:10: White Blood Count 16.3H, Red Blood Count 4.81, Hemoglobin 9.0L, Hematocrit 31L, Mean Corpuscular Volume 63L, Mean Corpuscular Hemoglobin 19L, Mean Corpuscular Hemoglobin Concent 30L, Red Cell Distribution Width 18.2H, Platelet Count 608H, Mean Platelet Volume 9.1, Neutrophils (%) (Auto) 76H, Lymphocytes (%) (Auto) 15 , Monocytes (%) (Auto) 7, Eosinophils (%) (Auto) 1, Basophils (%) (Auto) 0, Neutrophils # (Auto) 12.4H, Lymphocytes # (Auto) 2.5, Monocytes # (Auto) 1.1H, Eosinophils # (Auto) 0.2, Basophils # (Auto) 0.1, Neutrophils % (Manual) 78, Lymphocytes % (Manual) 14, Monocytes % (Manual) 6, Eosinophils % (Manual) 2, Basophils % (Manual) 0, Band Neutrophils 0, Polychromasia SLIGHT, Hypochromasia SLIGHT, Anisocytosis MODERATE, Microcytosis MARKED, Spherocytes MODERATE, Sodium Level 138, Potassium Level 4.1, Chloride Level 105, Carbon Dioxide Level 22, Anion Gap 11, Blood Urea Nitrogen 7, Creatinine 0.70, Estimat Glomerular Filtration Rate > 60, BUN/Creatinine Ratio 10, Glucose Level 107H, Calcium Level 9.1, Corrected Calcium 9.3, Total Bilirubin 0.3, Aspartate Amino Transf ( AST/SGOT) 22, Alanine Aminotransferase (ALT/SGPT) 34, Alkaline Phosphatase 52, Total Protein 8.4H, Albumin 3.8, Lipase 15 08/10/18 15:44: Lactic Acid Level 0.90 Assessment/Plan Assessment/Plan Admission Diagonsis rlq abdominal pain acute appendicitis morbid obesity patient was discussed risks and benefits of laparoscopic appendectomy all other indicated procedures she and family understand risks and benefits and wishes to proceed. antibiotics preop scd's. Admission Status: Observation Assessment/Plan rlq abdominal pain acute appendicitis morbid obesity patient was discussed risks and benefits of laparoscopic appendectomy all other indicated procedures she and family understand risks and benefits and wishes to proceed. antibiotics preop scd's. MOHIT HA DO Aug 10, 2018 17:38
[2018-08-10] MEDS ORDERED: metroNIDAZOLE 500MG/100ML IVPB IV ONE (17:45)
[2018-08-10] MEDS ORDERED: ceFAZolin 2 GM IV Premixed 50 ML IV ONE (17:45)
[2018-08-10] MEDS ORDERED: proPOfol 200 MG/20 ML (DIPRIVAN) VIAL IV ONE (19:06)
[2018-08-10] MEDS ORDERED: DEXAMETHASONE 10 MG/ML (DECADRON) 1 ML VIAL ONE (19:06)
[2018-08-10] MEDS ORDERED: LIDOCAINE PF 2% 5 ML (XYLOCAINE) VIAL ONE (19:06)
[2018-08-10] MEDS ORDERED: SEVOFLURANE (ULTANE) 15 ML INHAL SOLN ONE (19:06)
[2018-08-10] MEDS ORDERED: ONDANSETRON 4 MG/2 ML (SDV) Z0FRAN ONE (19:06)
[2018-08-10] MEDS ORDERED: EPINEPHrine INJECTION 1 MG/ML AMP ONE (19:06)
[2018-08-10] MEDS ORDERED: ROCURONIUM 10 MG/ML 5 ML SYRINGE IV ONE (19:06)
[2018-08-10] MEDS ORDERED: HYDROCORTISONE 100 MG/2 ML (Solu-CORTEF) VIAL ONE (19:06)
[2018-08-10] MEDS ORDERED: RT-ALBUTEROL SULF 2.5 MG/3 ML PRE-MIX VIAL ONE ×2 (19:20→20:04)
[2018-08-10] MEDS ORDERED: NEOSTIGMINE 1 MG/ML 5 ML SYRINGE ONE (19:56)
[2018-08-10] MEDS ORDERED: GLYCOPYRROLATE 0.2 MG/ML (ROBINUL) 2 ML VIAL ONE (19:56)
--- NOTE | 2018-08-10 20:34 | Progress Note-Post Operative ---
Post-Operative Progess Note Surgeon (s)/Electronic Scanner Operator (s) Surgeon MOHIT ENGLAND DO Electronic Scanner Operator: na Pre-Operative Diagnosis appendicitis Post-Operative Diagnosis same Procedure & Operative Findings Date of Procedure 08/10/18 Procedure Performed/Findings lap appendectomy Anesthesia Type gen Estimated Blood Loss Estimated blood loss (mL): min Specimens/Packing Specimens Removed appendix MOHIT ENGLAND DO Aug 10, 2018 20:33
[2018-08-10] MEDS ORDERED: HYDROcodone/APAP 5 MG/325 MG (LORTAB) TAB PO PRN (20:45)
[2018-08-10] MEDS ORDERED: morphine INJ 10 MG/ML 1ML (SYR OR VIAL) IV PRN (20:45)
[2018-08-10] MEDS: ceFAZolin INJECTION 2,000 MG in WATER (STERILE) FOR INJECTION 10 ML IV SCH (22:28)
[2018-08-10] MEDS: NS IV 1000 ML 1,000 ML IV SCH (22:28)
[2018-08-10] MEDS: metroNIDAZOLE 500MG/100ML IVPB IV SCH (22:41)
--- NOTE | 2018-08-11 | NUR ---
Pt turned semiconductor processor light. This RN responded to call light. When the door to pt room was opened, a large plume of smoke escaped in the hallway. Pt with 2 visitors at bedside who had recently smoked cigarettes. This RN advised pt et visitors of no smoking policy. Kristina Stuart, Front Desk Admin, notified of situation.
[2018-08-11] MEDS ORDERED: RT-ALBUTEROL SULF 2.5 MG/3 ML PRE-MIX VIAL INH PRN (00:15)
[2018-08-11] MEDS: LACTATED RINGERS 1,000 ML IV SCH ×2 (02:20→06:49)
[2018-08-11 04:00] VITALS: BP 122/72
--- NOTE | 2018-08-11 04:25 | OPERATIVE REPORT ---
DATE OF SERVICE: 08/10/2018 PREOPERATIVE DIAGNOSIS: Appendicitis. POSTOPERATIVE DIAGNOSIS: Appendicitis. PROCEDURE: Laparoscopic appendectomy. SURGEON: Mohit Ha DO ANESTHESIA: General. ESTIMATED BLOOD LOSS: Minimal. COMPLICATIONS: None. INDICATIONS: The patient is a 18-year-old female with abdominal pain along the right side, more in the right lower quadrant on exam. She had a CT scan that was consistent with acute appendicitis. Her exam was the same. She has a white count of 16,000. The patient understands risks and benefits of laparoscopic appendectomy and all other indicated procedures. She understands and wishes to proceed. Consent was signed in the chart. DESCRIPTION OF PROCEDURE: The patient was taken to the operating suite. She was prepped and draped in sterile fashion. Surgical pause was performed. The incision was made just superior to the umbilicus and cautery was used to dissect down to the fascia, which was scored, grasped and elevated. The abdomen was then entered. A balloon trocar was inserted. Pneumoperitoneum was achieved. Under direct visualization of the laparoscope, a 5 mm trocar was placed in subxiphoid region and a 5 mm trocar was placed in left lower quadrant. The appendix was slightly inflamed and dilated with some erythematous changes around it. It was able to be grasped, elevated. The [place] was then used to dissect around the base of the appendix and an Endo-SG 2.5 stapler was then fired across the base of the appendix. A LigaSure was then used to divide the mesoappendix. Hemostasis had been achieved. The appendix was then placed in an Endobag and removed through 12 mm trocar site. The abdomen was inspected. No other pathology noted. The abdomen was then desufflated, the trocars were removed. An 0 Vicryl was used to close the fascia at the umbilicus. The skin was then closed in subcuticular fashion using 4-0 Monocryl. The abdomen was then washed and dried and Skin Affix was placed over incisions. The patient tolerated procedure well without any complications. She was taken to recovery room in stable condition. Job ID: [id number] DocumentID: [id number] Dictated Date: 08/10/2018 20:57:52 Computational Geneticist Date: 08/11/2018 04:24:25 Dictated By: MOHIT HA DO
[2018-08-11] MEDS: metroNIDAZOLE 500MG/100ML IVPB IV SCH (05:28)
[2018-08-11] MEDS ORDERED: ceFAZolin INJECTION 2,000 MG ONE (05:45)
[2018-08-11] MEDS: ceFAZolin INJECTION 2,000 MG in WATER (STERILE) FOR INJECTION 10 ML IV SCH (06:21)
[2018-08-11] MEDS: NS IV 1000 ML 1,000 ML IV SCH ×2 (06:50→08:33)
[2018-08-11] MEDS ORDERED: FLU QUADRIvalent (5+ YOA) 2018-2019 (AFLURIA) 0.5 ML IM ONE (07:00)
[2018-08-11 08:00] VITALS: BP 127/83
[2018-08-11] MEDS ORDERED: HYDR-4226 PO (08:14)
--- NOTE | 2018-08-11 08:16 | Discharge Inst-Simple/Standard ---
Discharge Inst-Standard Discharge Medications New, Converted or Re-Newed RX: RX on Chart Patient Instructions/Follow Up Plan of Care/Instructions/FU: 2 weeks Dilcia Activity as Tolerated: No Discharge Diet: Regular Diet Other Inst to Patient Follow up Appt: Make appointment for 2 week. Instructions: No lifting greater than 10 pounds. No strenuous activity. May shower in 24 hours, no tub bath or soaking. Use incentive spirometer at home as directed. No Smoking Skin/Wound Care: You have special glue over incisions it will fall off on its own. Symptoms to Report: Appetite Changes, Extremity Discoloration, Numbness/Tingling, Swelling Increased , Bleeding Excessive, Eyesight Changes, Pain Increased, Urine Color Change, Constipation(Persistent), Fever over 101 degree F, Pain/Pressure in chest, Urinating Difficulty, Cough Up/Vomit Blood, Heart Beat Irreg/Pounding, Pain/ Pressure in jaw, Vaginal Bleeding Increase, Cramps in feet or legs, Lightheadedness, Pain/Pressure in shoulder, Diarrhea(Persistent), Memory Changes Suddenly, Questions/Concerns, Weight gain consecutive days, Dizziness/ Fainting, Nausea/Vomiting, Shortness of Breath, Weight gain over 2 pounds If questions or concerns contact your physician Or seek help at emergency department. Planned Outpatient Orders/Ref. Pneu Vac Indicated: Yes MOHIT ENGLAND DO Aug 11, 2018 08:16
--- NOTE | 2018-08-11 09:30 | Anesthesia-General Post-Op ---
General Patient Condition Mental Status/LOC: Same as Preop Cardiovascular: Satisfactory Nausea/Vomiting: Absent Respiratory: Satisfactory Pain: Controlled Complications: Absent Post Op Complications Complications None Follow Up Care/Instructions Patient Instructions None needed. Anesthesia/Patient Condition Patient Condition Patient is doing well, no complaints, stable vital signs, no apparent adverse anesthesia problems. No complications reported per nursing. FELIPE RAMOS CRNA Aug 11, 2018 09:30
[2018-08-11 13:15] VITALS: BP 127/83
--- NOTE | 2018-08-11 16:09 | Progress Note ---
Subjective Date Seen by a Provider: Aug 11, 2018 Time Seen by a Provider: 09:33 Subjective/Events-last exam Patient is doing well pain control. Tolerating liquids. Denies any nausea vomiting fever sweats chills shortness of breath or chest pain. Wanting to go home. Focused Exam Lactate Level 08/10/18 15:44: Lactic Acid Level 0.90 Objective Exam Vital Signs Date Time Temp Pulse Resp B/P (MAP) Pulse Ox O2 Delivery O2 Flow Rate FiO2 08/11/18 13:15 98 20 127/83 96 Room Air 08/11/18 08:00 97.8 98 20 127/83 (98) 96 Room Air 08/11/18 04:00 97.8 96 16 122/72 (89) 96 Room Air 08/11/18 03:14 90 OxyMask 8.00 08/10/18 17:40 99.6 102 18 155/92 (113) 97 Room Air I & O 08/11/18 07:00 Intake Total 1000 ml Output Total 200 ml Balance 800 ml Capillary Refill : Less Than 3 Seconds General Appearance: No Apparent Distress HEENT: PERRL/EOMI, Normal ENT Inspection (multiple piercings) Neck: Non Tender, Supple Respiratory: Chest Non Tender, No Accessory Muscle Use, No Respiratory Distress Cardiovascular: Regular Rate, Rhythm Gastrointestinal: normal bowel sounds, soft, tenderness (incisional) Extremity: Non Tender, No Calf Tenderness Neurologic/Psychiatric: Alert, Oriented x3, No Motor/Sensory Deficits, Normal Mood/Affect, corrections sergeant II-XII Norm as Tested Skin: Normal Color, Warm/Dry Lymphatic: No Adenopathy Results Lab Microbiology 08/10/18 Blood Culture - Preliminary, Resulted No growth 08/10/18 Urine Culture - Final, Complete 3 or more isolates Assessment/Plan Assessment/Plan Assessment/Plan rlq abdominal pain acute appendicitis morbid obesity Status post laparoscopic appendectomy Patient doing well. Okay to DC home. Patient follow-up in 2 weeks. Any issues before that be seen at that time. Patient instructed to use incentive spirometer. See discharge information. Final Diagnosis rlq abdominal pain acute appendicitis morbid obesity Status post laparoscopic appendectomy Clinical Quality Measures DVT/VTE Risk/Contraindication: Risk Factor Score Per Nursin RFS Level Per Nursing on Admit: 4+=Very High MOHIT ENGLAND DO Aug 11, 2018 16:09
== END 2018-08-11 11:20 | disposition home or self-care (01) ==
LOC: EDUNIT# 14:42 → ER 14:43 → SDC 16:57 → 4TH 23:10 → SDC 08-11 11:20
PROVIDERS: ATTEND Surgery
DX: K35.80 Unspecified acute appendicitis (principal); N39.0 Urinary tract infection, site not specified; J45.909 Unspecified asthma, uncomplicated; F17.210 Nicotine dependence, cigarettes, uncomplicated; I10 Essential (primary) hypertension; A59.9 Trichomoniasis, unspecified; E66.01 Morbid (severe) obesity due to excess calories; Z68.42 Body mass index [BMI] 45.0-49.9, adult; Z79.899 Other long term (current) drug therapy
CPT/HCPCS: 36415; 74177; 76705; 80053; 81000; 83605; 83690; 84703; 85007; 85027; 87040; 87088

== ENCOUNTER 2022-12-22 23:19 | Emergency (ER) | payer SELFPAY ==
[~2022-12-22] VITALS: Ht 175 cm; Wt 149.0 kg
[~2022-12-22 23:19] MED LIST changes: +HYDR-4226 PO; +METR-145 PO; +SULF1TAB38 PO
[2022-12-22 23:33] VITALS: BP 153/113
== END 2022-12-23 00:04 | disposition left against medical advice (07) ==
LOC: EDUNIT# 23:19 → ER 23:23
DX: N93.9 Abnormal uterine and vaginal bleeding, unspecified (principal); Z28.310 Unvaccinated for COVID-19
CPT/HCPCS: 99282